=== PATIENT | female | born 1990 | race Two or more races ===

== ENCOUNTER 2023-08-18 04:46 | Emergency (ER) | payer MEDICAID ==
[~2023-08-18] VITALS: Ht 165.1 cm; Wt 56.7 kg
[2023-08-18 05:05] VITALS: TEMP 97.8
[2023-08-18] MEDS ORDERED: HYDROCODONE/APAP 5/325MG TABLET ONE (05:25)
[2023-08-18] MEDS ORDERED: ONDANSETRON 4 MG TAB.RAPDIS ONE (05:25)
[2023-08-18] MEDS: HYDROCODONE/APAP 5/325MG TABLET PO ONE (05:30)
[2023-08-18] MEDS: ONDANSETRON 4 MG TAB.RAPDIS SL ONE (05:31)
[2023-08-18] MEDS ORDERED: CYCL5TAB PO (07:21)
[2023-08-18] MEDS ORDERED: IBUP-1955 PO (07:21)
[2023-08-18 07:28] VITALS: BP 124/81; O2SAT 100
== END 2023-08-18 07:28 | disposition home or self-care (01) ==
LOC: ER 04:49
DX: S16.1XXA Strain of muscle, fascia and tendon at neck level, initial encounter (principal); S29.012A Strain of muscle and tendon of back wall of thorax, initial encounter; S39.012A Strain of muscle, fascia and tendon of lower back, initial encounter; S09.90XA Unspecified injury of head, initial encounter; R11.2 Nausea with vomiting, unspecified; W18.30XA Fall on same level, unspecified, initial encounter; Y93.89 Activity, other specified; Y92.89 Other specified places as the place of occurrence of the external cause; Y99.8 Other external cause status
CPT/HCPCS: 99284; 72125; 70450; 72131; 72128; Q0162